=== PATIENT | female | born 1930 | race Caucasian/White ===

== ENCOUNTER 2016-10-07 07:54 | Inpatient (IN) | payer MEDICARE, BC, MEDICAID ==
[2016-10-07] VITALS (68 sets, daily range): BP systolic 83–173; BP diastolic 47–109; PULSE 96–128; RESP 11–58; TEMP 95.8–97.8; O2SAT 85–100; Ht 160 cm; Wt 71.6 kg
[~2016-10-07] VITALS: Ht 160 cm; Wt 71.6 kg
[~2016-10-07 07:54] MED LIST: DULO60CA25 PO; MELO-32 PO; MEMA5TAB PO; MULT-806 PO; OMEP-29 PO
--- OUTSIDE RECORDS SUMMARY | 2016-10-07 07:57 | XMS REPORT | Continuity of Care Document ---
Author Author [facility] Address [address] [place] [address] [place] [address] Phone Care Team Providers Care Insurance Claim Representative Name Role Phone Jose Luis Garza PP Unavailable Payers Payer name Insurance type Covered green party ID Authorization(s) Unknown Problems Condition Effective Dates (start - stop) Clinical Status Dementia - *Chronic Hypertension, Benign - *Chronic GERD - *Chronic Depression - *Chronic Rhinitis - *Chronic Cracked skin on feet - *Acute DEMENTIA W/O BEHAV DIST - ANXIETY STATE NOS - ESOPHAGEAL REFLUX - GASTROINTEST HEMORR NOS - Hypertension, Benign - *Chronic Dementia - *Chronic Hypertension, Benign - *Chronic Dementia - *Chronic Depression - *Chronic GERD - *Chronic Foot pain - *Acute Dermatitis - *Acute Left foot pain - *Acute Hypertension, Benign - Chronic Hypertension, Benign - Chronic Head injury - *Acute Family History Family Member Diagnosis Age At Onset Status Unknown Social History Social History Element Description Quantity Unknown Allergies, Adverse Reactions, Alerts Substance Reaction Severity Status Unknown Medications Medication Instructions Dosage Effective Dates (start - stop) Status omeprazole 20 mg tablet,delayed release Take 1 tablet by mouth every day. - Active Tylenol 325 mg tablet TAKE 2 TABS BY MOUTH EVERY 4-6 HOURS NEEDED - Active Calcium 600 + D(3) 600 mg (1,500 mg)-400 unit tablet Take 1 tablet by mouth twice a day. - Active Aricept 10 mg tablet Take 1 tablet by mouth every day. - Active Cymbalta 60 mg capsule,delayed release Take 1 capsule by mouth every day. - Active Namenda 10 mg tablet Take 1 tablet by mouth twice a day. - Active multivitamin tablet Take 1 tablet by mouth every day. - Active triamterene 37.5 mg-hydrochlorothiazide 25 mg capsule take 1 capsule by oral route every day 0 - Active lisinopril 10 mg tablet take 1 tablet (10MG) by oral route every day 10 MG - Active Cymbalta 30 mg capsule,delayed release take 1 capsule (30MG) by oral route every day With the 60MG to equal 90MG 30 MG - Active Pepcid 20 mg tablet take 1 tablet (20MG) by oral route 2 times every day 20 MG - Active Immunizations Vaccine Date Status Comments flu (split) (3 yrs or older) completed - Completed reason: other registry flu (split) (3 yrs or older) completed - Completed reason: other registry Results Test Name Date and Time Measure Units Reference Range Abnormal Flag Comments Unknown Vital Signs Date / Time: Height Weight Pulse Rate Blood Pressure Temperature /10:02:00 61.00 in 144.00 lbs 76 /min 136/74 mm[Hg] 98.2 F Procedures Procedure Date Unknown Encounters Encounter Location Date Patient Visit [facility] Patient Visit Conversion Patient [facility] Patient [facility] Patient [facility] Patient [facility] Patient Visit [facility] Patient Visit [facility] Patient Visit [facility] Patient Visit [facility] Patient Visit [facility] Advance Directives Directive Effective Date Unknown
--- OUTSIDE RECORDS SUMMARY | 2016-10-07 07:57 | XMS REPORT | Continuity of Care Document ---
Author Author [facility] Organization [facility] Address Unknown Phone Unavailable Allergies Medications Problems Procedures Results Encounters ACCT No. Visit Date/Time Discharge Status Pt. Type Provider Facility Loc./Unit Complaint [id number] 03/31/2013 10:02:00 03/31/2013 23 :59:59 CLS Outpatient
--- OUTSIDE RECORDS SUMMARY | 2016-10-07 07:57 | XMS REPORT | Referral Summary ---
Author Organization Unknown Address Unknown Phone Unavailable Care Team Providers Care Business Records Manager Name Role Phone Hamlet Garza Primary Care Physician [phone] Encounter VC Date(s): 07/24/14 - 07/24/14 [facility], [address] [place] [address] Discharge Diagnosis: Dementia Discharge Diagnosis: Benign hypertension Discharge Diagnosis: Allergic rhinitis, cause unspecified Discharge Diagnosis: Depression Discharge Disposition: Home or Self Care Attending Physician: Jose Luis Garza MD Admitting Physician: Jose Luis Garza MD Referring Physician: Jose Luis Garza MD Vital Signs Most recent to 1 oldest [Reference Range]: Temperature Tympanic 36.7 degC [36.6-38.1 degC] (07/24/14 1:20 PM) Peripheral Pulse 77 bpm Rate [60-100 bpm] (07/24/14 1:20 PM) Respiratory Rate 16 br/min [14-20 br/min] (07/24/14 1:20 PM) Blood Pressure 96/52 mmHg [90-140/60-90 mmHg] (07/24/14 1:20 PM) Most recent to 1 oldest [Reference Range]: SpO2 100 % (07/24/14 1:20 PM) Problem List Condition Effective Dates Status Health Status Informant Allergic rhinitis, Active cause unspecified(Confirme d) Anxiety(Confirmed) Active Benign essential Active hypertension (disorder)(Confirmed ) Benign Active hypertension(Confirm ed) Dementia(Confirmed) Active Depression(Confirmed Active ) Esophageal Active reflux(Confirmed) Gastroesophageal Active reflux disease (disorder)(Confirmed ) GI Active bleeding(Confirmed) HTN Active (hypertension)(Confi rmed) Macular Active degeneration(Confirm ed) Allergies, Adverse Reactions, Alerts No Known Medication Allergies Medications Aricept 10 mg oral tablet 1 tabs, Oral, Daily Start Date: 02/27/14 Status: Ordered Calcium 600+D 1 tabs, Oral, BID Start Date: 02/27/14 Status: Ordered Cymbalta 30 mg oral delayed release capsule 1 caps, Oral, BID, Take with the 60 mg for a total of 90 mg Special Instructions: Take with the 60 mg for a total of 90 mg Start Date: 02/27/14 Status: Ordered Cymbalta 60 mg oral delayed release capsule 1 caps, Oral, Daily Start Date: 02/27/14 Status: Ordered Flonase 50 mcg/inh nasal spray 2 sprays, Nasal, Daily, 0 Refill(s) Start Date: 03/08/14 Status: Ordered lisinopril 10 mg oral tablet 1 tabs, Oral, Daily Start Date: 02/27/14 Status: Ordered multivitamin 1 tabs, Oral, Daily Start Date: 02/27/14 Status: Ordered Namenda 10 mg oral tablet 1 tabs, Oral, BID Start Date: 02/27/14 Status: Ordered Pepcid 20 mg oral tablet 1 tabs, Oral, BID Start Date: 02/27/14 Status: Ordered RisperDAL 0.25 mg, Oral, Bedtime (once a day), 0 Refill(s) Start Date: 03/08/14 Status: Ordered triamterene-hydrochlorothiazide 37.5 mg-25 mg oral capsule 1 caps, Oral, Daily, # 30 caps, 0 Refill(s) Start Date: 03/08/14 Status: Ordered Tylenol Regular Strength 325 mg oral tablet 2 tabs, Oral, q4hr, as needed Special Instructions: as needed Start Date: 02/27/14 Status: Ordered Results No data available for this section Immunizations Vaccine Date Refusal Reason influenza virus vaccine, live 03/17/13 influenza virus vaccine, live 03/19/12 pneumococcal 23-polyvalent vaccine 05/18/13 Procedures Procedure Date Related Diagnosis Body Site Esophagogastroduodenoscopy1 2011 Colonoscopy 2007 Esophagogastroduodenoscopy2 2007 Esophagogastroduodenoscopy3 1989 Tonsillectomy 1941 Hysterectomy Procedure - laser to both eyes for macular degeneration Sling procedure of bladder neck 1Barrett continues. Needs to remain on PPI. No followup EGD recommended due to age. 2Ulcer disturbed with scope and calsed significant bleeding 3Several since 1989, done in [place], reported as [place] in the . Social History Social History Type Response Smoking Status Former smoker; Type: Cigarettes Assessment and Plan Extracted from: Title: Office Visit Note Author: Jose Luis Garza MD Date: 07/24/14 Assessment/Plan Allergic rhinitis, cause unspecified Benign hypertension Ordered: Office Visit Level 4 Est 95508 Dementia Depression Plan: Continue all current medications and continue current orders. Follow-up in 2 months or sooner.
--- OUTSIDE RECORDS SUMMARY | 2016-10-07 07:58 | XMS REPORT | Referral Summary ---
Author Author [facility] Organization [facility] Address Unknown Phone Unavailable Care Team Providers Care Banking Attorney Name Role Phone Hamlet Garza Primary Care Physician [phone] Encounter VC Date(s): 11/20/14 - 11/20/14 [facility], [address] [place] [address] Discharge Disposition: 01-Home or Self Care Attending Physician: Jose Luis Garza MD Admitting Physician: Jose Luis Garza MD Vital Signs Most recent to 1 oldest [Reference Range]: Temperature Tympanic 37.2 degC [36.6-38.1 degC] (11/20/14 9:34 AM) Peripheral Pulse 72 bpm Rate [60-100 bpm] (11/20/14 9:34 AM) Blood Pressure 122/64 mmHg [90-140/60-90 mmHg] (11/20/14 9:34 AM) Problem List Condition Effective Dates Status Health Status Informant Allergic rhinitis, Active cause unspecified(Confirme d) Anxiety(Confirmed) Active Benign Active hypertension(Confirm ed) Dementia(Confirmed) Active Depression(Confirmed Active ) Gastroesophageal Active reflux disease (disorder)(Confirmed ) GI Active bleeding(Confirmed) Macular Active degeneration(Confirm ed) Allergies, Adverse Reactions, Alerts No Known Medication Allergies Medications Aricept 10 mg oral tablet 1 tabs, Oral, Daily Start Date: 02/27/14 Status: Ordered Calcium 600+D 1 tabs, Oral, BID Start Date: 02/27/14 Status: Ordered Cymbalta 60 mg oral delayed release capsule 1 caps, Oral, Daily Start Date: 02/27/14 Status: Ordered Flonase 50 mcg/inh nasal spray 2 sprays, Nasal, Daily, 0 Refill(s) Start Date: 03/08/14 Status: Ordered lisinopril 10 mg oral tablet 1 tabs, Oral, Daily Start Date: 02/27/14 Status: Ordered multivitamin 1 tabs, Oral, Daily Start Date: 02/27/14 Status: Ordered Namenda XR 28 mg oral capsule, extended release 1 caps, Oral, Daily, 0 Refill(s) Start Date: 08/18/14 Status: Ordered Pepcid 20 mg oral tablet 1 tabs, Oral, BID Start Date: 02/27/14 Status: Ordered triamterene-hydrochlorothiazide 37.5 mg-25 mg oral capsule 1 caps, Oral, Daily, # 30 caps, 0 Refill(s) Start Date: 03/08/14 Status: Ordered Tylenol Regular Strength 325 mg oral tablet 2 tabs, Oral, q4hr, as needed Start Date: 02/27/14 Status: Ordered Results No data available for this section Immunizations Vaccine Date Refusal Reason influenza virus vaccine, inactivated 03/30/15 influenza virus vaccine, live 03/17/13 influenza virus [...] significant bleeding 3Several since 1989, done in [place], reported as [place] in the . Social History Social History Type Response Smoking Status Former smoker; Type: Cigarettes Assessment and Plan Extracted from: Title: Office Visit Note Author: Jose Luis Garza MD Date: 11/20/14 Assessment/Plan Anxiety Benign hypertension Dementia Depression Gastroesophageal reflux disease (disorder) Lesion of tongue Plan: I'm going to set you up to see Dr. Mora or Dr. Jansen. For the spot on her tongue. Regarding her chronic medical problems we'll continue all current medications and follow-up in 2 months.
--- OUTSIDE RECORDS SUMMARY | 2016-10-07 07:58 | XMS REPORT | Referral Summary ---
Author Author [facility] Organization [facility] Address Unknown Phone Unavailable Care Team Providers Care Client Service Manager Name Role Phone Hamlet Garza Primary Care Physician [phone] Encounter VC Date(s): 11/20/14 - 11/20/14 [facility] [place], [address] [place] [address]- Discharge Disposition: 01-Home or Self Care Attending [...]
--- OUTSIDE RECORDS SUMMARY | 2016-10-07 07:58 | XMS REPORT | Referral Summary ---
Author Author [facility] Organization [facility] Address Unknown Phone Unavailable Care Team Providers Care Tearer Press Clipping Name Role Phone Hamlet Garza Primary Care Physician [phone] Encounter Date(s): 11/28/14 - 11/28/14 [facility] [address] [place], [place] [address] Discharge Diagnosis: Glossitis Discharge Diagnosis: Dementia Discharge Disposition: 01-Home or Self Care Attending Physician: Dg Jones MD Admitting Physician: Dg Jones MD Vital Signs No data available for this section Problem List Condition Effective Dates Status Health [...] Site Esophagogastroduodenoscopy1 2011 Colonoscopy 2007 Esophagogastroduodenoscopy2 2007 Esophagogastroduodenoscopy1989 Tonsillectomy 1941 Hysterectomy Procedure - laser to both eyes for macular degeneration Sling procedure of bladder neck 1Barrett continues. Needs to remain on PPI. No followup EGD recommended due to age. 2Ulcer disturbed with scope and calsed significant bleeding 3Several since 1989, done in [place], reported as [place] in the . Social History Social History Type Response Smoking Status Former smoker; Type: Cigarettes Assessment and Plan Extracted from: Title: Office Visit Note Author: Dg Jones MD Date: 11/28/14 Assessment/Plan 1.Glossitis I counseled the patient that for now I would recommend observation. The patient was counseled to brush her tongue with a toothbrush. The tongue does not appear to have thrush. Return to clinic prn. 2.Dementia
--- OUTSIDE RECORDS SUMMARY | 2016-10-07 07:58 | XMS REPORT | Referral Summary ---
Author Organization Unknown Address Unknown Phone Unavailable Care Team Providers Care Staffing Administrator Name Role Phone Hamlet Garza Primary Care Physician [phone] Encounter VC Date(s): 08/18/14 - 08/18/14 [facility], [address] [place] [address] Discharge Diagnosis: Bronchopneumonia Discharge Diagnosis: Dementia Discharge Diagnosis: Hard corn Discharge Diagnosis: Edema Discharge Diagnosis: PVD (peripheral vascular disease) Discharge Diagnosis: Varicosities Discharge Disposition: Home or Self Care Attending Physician: Brit Alicia APRN Admitting Physician: Brit Alicia APRN Vital Signs Most recent to 1 oldest [Reference Range]: Temperature Tympanic 37.6 degC [36.6-38.1 degC] (08/18/14 2:19 PM) Peripheral Pulse 83 bpm Rate [60-100 bpm] (08/18/14 2:19 PM) Respiratory Rate 28 br/min [14-20 br/min] *HI* (08/18/14 2:19 PM) Blood Pressure 112/68 mmHg [90-140/60-90 mmHg] (08/18/14 2:19 PM) Most recent to 1 oldest [Reference Range]: SpO2 95 % (08/18/14 2:19 PM) Problem List Condition Effective Dates Status [...] Oral, Daily Start Date: 02/27/14 Status: Ordered DuoNeb 0.5 mg-2.5 mg/3 mL inhalation solution 3 mL, Inhalation, q4hr (scheduled), then q 4-6 hrs PRN, 0 Refill(s) Special Instructions: then q 4-6 hrs PRN Start Date: 08/18/14 Stop Date: 08/21/14 Status: Ordered Flonase 50 mcg/inh nasal spray 2 sprays, Nasal, Daily, 0 Refill(s) Start Date: 03/08/14 Status: Ordered Levaquin 500 mg oral tablet 1 tabs, Oral, q24hr, # 10 tabs, 0 Refill(s) Start Date: 08/18/14 Stop Date: 08/28/14 Status: Ordered lisinopril 10 mg oral tablet 1 tabs, Oral, Daily Start Date: 02/27/14 Status: Ordered Mucinex 600 mg, Oral, q12hr, 0 Refill(s) Start Date: 08/18/14 Status: Ordered multivitamin 1 tabs, Oral, Daily Start Date: 02/27/14 Status: Ordered Namenda XR 28 mg oral capsule, extended release 1 caps, Oral, Daily, 0 Refill(s) Start Date: 08/18/14 Status: Ordered Pepcid 20 mg oral tablet 1 tabs, Oral, BID Start Date: 02/27/14 Status: Ordered Promethazine with Codeine 6.25 mg-10 mg/5 mL oral syrup 5 mL, Oral, q6hr, as needed for cough, may cause drowsiness, X 10 days, # 200 mL , 0 Refill(s) Special Instructions: may cause drowsiness Start Date: 08/18/14 Stop Date: 08/28/14 Status: Ordered triamterene-hydrochlorothiazide 37.5 mg-25 mg oral [...] significant bleeding 3Several since 1989, done in [place], reported as [place] in the . Social History Social History Type Response Smoking Status Former smoker; Type: Cigarettes Assessment and Plan Extracted from: Title: Office Visit Note Author: Brit Alicia PARTS TECHNICIAN Date: 08/18/14 Assessment/Plan 1.Bronchopneumonia Levaquin 500 mg one by mouth daily times days. DuoNeb nebulized treatments0.52 .5/3 mL every 4 hours routine 3 days then when necessary every 4-6 hours. Mucinex 600 mg by mouth twice a day 10 days. Promethazine with codeine 1 teaspoon every 6 hours when necessary cough. Keep feet elevated as much as possible. Follow-up in the office with me in one week for recheck corn removal. Ordered: Office Visit Level 4 Est 36662 XR Chest 2 Views 2.Edema Ordered: Office Visit Level 4 Est 35686 3.PVD (peripheral vascular disease) Ordered: Office Visit Level 4 Est 90526 4.Varicosities Ordered: Office Visit Level 4 Est 00988 5.Hard corn Ordered: Office Visit Level 4 Est 75006 Dementia Ordered: Office Visit Level 4 Est 05564 Orders: promethazine-codeine, 5 mL, Oral, q6hr, as needed for cough, may cause drowsiness, X 10 days, # 200 mL, 0 Refill(s)
--- OUTSIDE RECORDS SUMMARY | 2016-10-07 07:58 | XMS REPORT | Referral Summary ---
Author Organization Unknown Address Unknown Phone Unavailable Care Team Providers Care Aluminum Molder Name Role Phone Hamlet Garza Primary Care Physician [phone] Encounter VC Date(s): 09/19/14 - 09/19/14 [facility], [address] [place] [address]- Discharge Diagnosis: Allergic rhinitis, cause unspecified Discharge Diagnosis: Depression Discharge Diagnosis: Benign hypertension Discharge Diagnosis: Dementia Discharge Disposition: Home or Self Care Attending Physician: Jose Luis Garza MD Admitting Physician: Jose Luis Garza MD Vital Signs Most recent to 1 oldest [Reference Range]: Temperature Tympanic 36.6 degC [36.6-38.1 degC] (09/19/14 11:18 AM) Peripheral Pulse 83 bpm Rate [60-100 bpm] (09/19/14 11:18 AM) Respiratory Rate 16 br/min [14-20 br/min] (09/19/14 11:18 AM) Blood Pressure 143/82 mmHg [90-140/60-90 mmHg] *HI* (09/19/14 11:18 AM) Most recent to 1 oldest [Reference Range]: SpO2 93 % (09/19/14 11:18 AM) Problem List Condition Effective Dates Status [...] significant bleeding 3Several since 1989, done in [place], reported as [place] in the . Social History Social History Type Response Smoking Status Former smoker; Type: Cigarettes Assessment and Plan Extracted from: Title: Office Visit Note Author: Jose Luis Garza MD Date: 09/19/14 Assessment/Plan Allergic rhinitis, cause unspecified Benign hypertension Dementia Depression Plan: Continue all current medications. I'm discontinuing the promethazine with codeine. I think the pneumonia has resolved. Follow-up in 2 months.
[2016-10-07] MEDS ORDERED: VANCOMYCIN 1 G in NORMAL SALINE 250 ML IV ONE (08:00)
[2016-10-07] MEDS ORDERED: NORMAL SALINE 1,000 ML IV ONE ×3 (08:00→09:00)
[2016-10-07] MEDS ORDERED: CEFEPIME 1 G in NORMAL SALINE 100 ML IV ONE (08:00)
[2016-10-07] MEDS ORDERED: LEVOFLOXACIN 750 mg IVPB 750 MG in D5W 150 ML IV ONE (08:00)
--- NOTE | 2016-10-07 08:05 | NUR ---
[facility] INFUSED 900 CC OF NS. SECOND BAG OF NORMAL SALINE HUNG AND ON PRESSURE BAG.
--- NOTE | 2016-10-07 08:10 | NUR ---
BIPAP RT HERE AND PLACED PT. ON BIPAP DUE TO O2 SATS IN THE 80'S WITH 02 PER NC AND BAGGING WITH 15 LITRES OF 02.
[2016-10-07] MEDS ORDERED: NORMAL SALINE IV SCH ×3 (08:15→09:00)
[2016-10-07] MEDS ORDERED: NOREPINEPHRINE IV SCH ×3 (08:15→09:00)
--- NOTE | 2016-10-07 08:16 | NUR ---
CEFEPIME CEFEPIME INFUSING.
--- NOTE | 2016-10-07 08:20 | NUR ---
NOREPINEPHRINE NOREPINEPHRINE STARTED FOR LOW BP. PT. CONTINUES ON BIPAP. GROANING WITH THE BIPAP AND WANTS IT OFF.
--- OUTSIDE RECORDS SUMMARY | 2016-10-07 08:22 | XMS REPORT | Continuity of Care Document ---
Author Author [facility] Organization [facility] Address Unknown Phone Unavailable Allergies Medications Problems Procedures Results Encounters ACCT No. Visit Date/Time Discharge Status Pt. Type Provider Facility Loc./Unit Complaint [id number] 03/31/2013 10:02:00 03/31/2013 23 :59:59 CLS Outpatient
[2016-10-07 08:31] LABS: BASOPHILS % (AUTO) 0.2 % (0-2); HCT - HEMATOCRIT 39.3 % (36-46); HGB - HEMOGLOBIN 12.5 GM/DL (12-16); LYMPHOCYTES # (AUTO) 0.7 T/MM3 (1-4.8); LYMPHOCYTES % (AUTO) 16.3 % (23-45); MEAN CORPUSCULAR HGB 31.4 UUG (26-34); MEAN CORPUSCULAR HGB CONC(MCHC 31.8 GM/DL (31-37); MEAN CORPUSCULAR VOLUME 98.7 UM3 (80-100); MEAN PLATELET VOLUME 11.1 UM3 (9.4-12.4); MONOCYTES # (AUTO) 0.4 T/MM3 (0-0.8); MONOCYTES % (AUTO) 8.6 % (0-9.0); NEUTROPHILS #(AUTO)-ABSOLUTE 3.1 T/MM3 (1.8-7.7); NEUTROPHILS % (AUTO) 74.9 % (33-66); RED BLOOD COUNT 3.98 M/MM3 (4.00-5.20); WBC - WHITE BLOOD COUNT 4.2 T/MM3 (4.5-11.0)
--- NOTE | 2016-10-07 08:36 | ERPDOC ---
Departure Disposition Decision Date: October 07, 2016 Disposition Decision Time: 09:38 Disposition: 02 TO [facility] Impression Impression Impression: Primary Impression: Sepsis due to pneumonia Additional Impressions: Hypoxia Hypotension Hypotension type: other hypotension type Qualified Codes: I95.89 - Other hypotension Severity: Critical Condition: Improved Seen By: Physician only Referrals: PATT DONIS MD (Family) Problems/Meds/Labs Reviewed?: Yes Medications reviewed and manag: Yes Follow up care ordered?: Yes Mental Status: Alert, Confused Critical Care Note Total Time (mins): 105 Critical Care Spent: [place]-rgef care of pt, Reviewing test results, Discuss the case w/staff, Documenting the MR, Discussion w/ family/DPOA During this visit the pt was: Critically Ill, At Risk of Deterioration, At Risk of HPI - General Medical General Chief Complaint: Dyspnea/Respdistress Stated Complaint: GI BLEED Time Seen by Provider: 08:00 Source: RN/MD, EMS Exam Limitations: clinical condition HPI - General Medical Initial Comments 86yo woman presented to the ER today by EMS for nonresponsiveness, dried blood around the mouth, hypoxia, and hypotension. Pt is a [facility] resident; [facility] staff could not confidently state when pt was last seen in her usual state of health, when blood appeared on pts face/lips, what her usual LOC is, etc. [facility] staff called EMS when they noted dried blood and unresponsiveness earlier this AM. EMS arrived to find pt obtunded, hypotense (BP 60/palp), and hypoxic (70s on RA). IVF under pressure brought her pressure to 70s/40s; supplemental O2 via NC, along with PPV increased her SaO2 to low 90s. Pt remained unresponsive throughout transport to ER. Pt does have a signed DNR in her chart. Daughter (DPBYRON) lives in [place], [place]. Occurred At: home Severity: severe Hx of Similar Symptoms: No Allergies: Coded Allergies: NKDA (Verified Allergy, Unknown, 10/07/16) Past History Unable to Obtain PMH Due to: clinical condition Patient Medical History (1) Dysphagia (2) Barretts esophagus Past Medical History Metabolic: hypertension, hypothyroidism ENMT: allergies, dental problems GI: GERD, constipation Psychological: anxiety, dementia, depression Review of Systems Unable to Obtain ROS Due to: clinical condition Physical Exam General General Nourishment: well nourished, well developed, appears stated age, adult , obese, acute distress General Body Habitus: disheveled Vitals and Pain First Documented Vital Signs Date Time Temp Pulse Resp B/P Pulse Ox O2 Delivery O2 Flow Rate FiO2 10/07/16 07:55 89 10/07/16 08:27 97.4 98 22 64/47 Ambu-Bag 15.00 10/07/16 08:46 100 Weight: Kilograms: 66.500 Height (feet): 5 Height (inches): 3.00 Triage Pain Scale: RN VS reviewed by Provider: Yes Eyes (brief) Eyes Brief: found: PERRL, scleral icterus, not found: EOMI ENMT (brief) ENMT Brief: NOT FOUND: mucosa moist (Dry MM), nasal erythema, nasal exudate Comments Dried blood present around pts lips/mouth Neck (brief) Neck: FOUND: trachea midline, NOT FOUND: JVD, adenopathy, thyromegaly Respiratory (brief) Respiratory: FOUND: equal bilaterally, rales (Throughout), symmetrical, NOT FOUND: clear all rendon, wheezes Cardiovascular (brief) Cardiac: FOUND: regular rate, NOT FOUND: click, gallop, murmur, pedal edema, peripheral edema, regular rhythm (Irregularly irregular rhythm), rub Capillary Refill: <2 sec Pulses: all distal extremities, equal, strong Abdomen (brief) Abdominal Brief: FOUND: bowel normo active x4, soft, NOT FOUND: distended, hepatosplenomegaly, pulsatile mass, tender Lymphatic (brief) Lymphatic Brief: NOT FOUND: adenopathy, lymphedema Musculoskeletal (brief) Musculoskeletal Brief: NOT FOUND: deformity, loss of motion, spasm, tenderness Integumentary (brief) Integumentary Brief: FOUND: dry, NOT FOUND: pink, warm Comments Dusky polk Neurologic (brief) Neurological Brief: FOUND: DTR 2/4 all extremities, NOT FOUND: CN w/o gross def to obs, gait w/o gross def to obs, motor-no gross deficits, sensory-no gross deficits Psychiatric (brief) Psychiatric Brief: NOT FOUND: alert, oriented Differential Diagnoses Considering: Acute [place], CVA, Drug Overdose, Hypo/Hyperglycemia, Hypo/ Hyperkalemia, Hypo/Hypernatremia, Medication Effect, Metabolic, Pneumonia, Pulmonary Embolus, TIA, UTI Progress Results/Orders Orders Procedure Category Date Status Time Normal Saline (Normal PHA 10/07/16 Complete Saline Iv) 08:15 Lactate - Lactic Acid LAB 10/07/16 Complete 08:00 Blood Culture CATHY 10/07/16 In Process 08:00 Normal Saline (Normal PHA 10/07/16 Complete Saline Iv) 08:00 Cbc W/Auto LAB 10/07/16 Complete Diff-Reflex Manual 08:00 Cmp - Comprehensive LAB 10/07/16 Complete Metabolic 08:00 Procalcitonin LAB 10/07/16 Complete 08:00 Iv Lock (Ed Only) EDM 10/07/16 Transmitted 08:00 Oxygen Administration EDM 10/07/16 Transmitted 08:00 Blood Gas, Arterial - LAB 10/07/16 Complete ABG 08:00 Vancomycin (Vancocin) PHA 10/07/16 Complete 08:00 Pharmacy Consult CONS 10/07/16 Transmitted 08:00 Levofloxacin 750 Mg PHA 10/07/16 Complete Ivpb (Levaquin 750 M 08:00 Cefepime (Maxipime) PHA 10/07/16 Complete 08:00 D-Dimer LAB 10/07/16 Complete EKG EKG 10/07/16 Taken Type And Screen BBK 10/07/16 Complete 08:00 Normal Saline (Ns) PHA 10/07/16 Complete W/Norepinephrine 08:15 Normal Saline (Ns) PHA 10/07/16 Complete W/Norepinephrine 08:30 Troponin I W LAB 10/07/16 Complete Hemolysis Index 08:30 Probnp LAB 10/07/16 Complete 08:30 INR LAB 10/07/16 Complete 08:50 PTT LAB 10/07/16 Complete 08:50 Normal Saline (Normal PHA 10/07/16 In Process Saline Iv) 09:00 Chest 1 View RAD 10/07/16 Resulted 08:00 Normal Saline (Ns) PHA 10/07/16 In Process W/Norepinephrine 09:00 Normal Saline PHA 10/07/16 In Process (Norm... W/Potassium 09:15 1/2 Ns W/ Kcl 20meq PHA 10/07/16 In Process (06/09 Ns W/ Kcl 20meq 09:30 Andrea (Ed) EDM 10/07/16 Transmitted 09:26 Catheter Needs VALE 10/07/16 In Process Assessment 09:26 Bladder Scanner (Ed) EDM 10/07/16 Transmitted 09:26 Bipap Subsequent Day RT 10/07/16 Logged Lactate - Lactic Acid LAB 10/07/16 Logged 13:00 Cefepime (Maxipime) PHA 10/07/16 In Process 20:00 Vancomycin (Vancocin) PHA 10/07/16 Complete 21:00 Lorazepam (Ativan) PHA 10/07/16 In Process 09:45 Bmp - Basic Metabolic LAB 10/07/16 Logged Panel 18:00 Pharmacy Consult CONS 10/07/16 Transmitted 09:42 Cbc W/Auto LAB 10/08/16 Verified Diff-Reflex Manual 04:00 Bmp - Basic Metabolic LAB 10/08/16 Verified Panel 04:00 Albuterol/Ipratropium PHA 10/07/16 In Process (Duoneb) 11:00 Telemetry VALE 10/07/16 In Process 09:42 UA, LAB 10/07/16 Complete Dip&Micro(Complete) & 09:45 Place In Facility: ED ADM 10/07/16 Transmitted Levofloxacin 750 Mg PHA 10/09/16 In Process Ivpb (Levaquin 750 M 09:00 Lab Results Laboratory Tests Test 10/07/16 07:40 10/07/16 08:00 10/07/16 08:07 10/07/16 08:25 Prothromb Time International Ratio 1.11 Activated Partial Thromboplast Time 23.2SEC Magnesium Level 1.8MG/DL Arterial Blood pH 7.240 Arterial Blood Partial Pressure CO2 36MMHG Arterial Blood pO2 at Patient Temp 67MMHG Arterial Blood HCO3 15MEQ/L Arterial Blood Total CO2 16.5MEQ/L Arterial Blood Oxygen Saturation 89.0% Arterial Blood Base Excess -11.1MMOL/L Oxygen Delivery Method (LAB) Bpap, % Blood Gas Oxygen Liter Flow Blood Gas Oxygen Percent Given 100 Blood Gas Vent Rate Blood Gas Tidal Volume ML White Blood Count 4.2T/MM3 Red Blood Count 3.98M/MM3 Hemoglobin 12.5GM/DL Hematocrit 39.3% Mean Corpuscular Volume 98.7UM3 Mean Corpuscular Hemoglobin 31.4UUG Mean Corpuscular Hemoglobin Concent 31.8GM/DL RDW Standard Deviation 45.1FL Platelet Count 68T/MM3 Mean Platelet Volume 11.1UM3 Immature Granulocyte % (Auto) 0.0% Neutrophils (%) (Auto) 74.9% Lymphocytes (%) (Auto) 16.3% Monocytes (%) (Auto) 8.6% Eosinophils (%) (Auto) 0.0% Basophils (%) (Auto) 0.2% Absolute Immature Granulocyte (auto 0.00T/MM3 Absolute Neutrophils (auto) 3.1T/MM3 Absolute Lymphocytes (auto) 0.7T/MM3 Absolute Monocytes (auto) 0.4T/MM3 Absolute Eosinophils (auto) 0.0T/MM3 Absolute Basophils (auto) 0.0T/MM3 D-Dimer 4268NG/ML Turbidity < 20 Sodium Level 149MEQ/L Potassium Level 2.8MEQ/L Chloride Level 115MEQ/L Carbon Dioxide Level 17MEQ/L Anion Gap 17MEQ/L Blood Urea Nitrogen 24.0MG/DL Creatinine 1.5MG/DL Glomerular Filtration Rate Calc 33 BUN/Creatinine Ratio 16RATIO Glucose Level 148MG/DL Calculated Osmolality 293MOSM/KG Calcium Level 7.7MG/DL Total Bilirubin 0.50MG/DL Icterus Index < 2 Aspartate Amino Transf (AST/SGOT) 25U/L Alanine Aminotransferase (ALT/SGPT) 32U/L Alkaline Phosphatase 44U/L Troponin I 0.027ng/ml MI-Kla-S-Type Natriuretic Peptide 1220PG/ML Total Protein 4.7G/DL Albumin 2.5G/DL Globulin 2.2G/DL Albumin/Globulin Ratio 1.1RATIO Plasma Lactate 8.7MMOL/L Procalcitonin 6.69NG/ML Chemistry Specimen Hemolysis < 15 Test 10/07/16 09:45 Urine Collection Type Straight cath Urine Color [place] Urine Turbidity Clear Urine pH 5.0 Urine Specific [place] 1.025 Urine Protein 1+ Urine Glucose (UA) Negative Urine Ketones Negative Urine Blood 2+ Urine Nitrite Negative Urine Bilirubin Negative Urine Urobilinogen 0.2EU/DL Urine Leukocyte Esterase Negative Urine RBC 0-1/HPF Urine WBC 30-50/HPF Urine Squamous Epithelial Cells 0-5 Urine Bacteria 3+ Urine Culture Indicated Cult reflexed &setup Medications Current ED Medications Sodium Chloride 1,000 ml @ 1,000 mls/hr Q1H ONCE IV ; Start 10/07/16 at 08:15; Stop 10/07/16 at 09:14; Status DC Sodium Chloride 1,000 ml @ 0 mls/hr Q0M ONCE IV Last administered on 10/07/16t 08:05; Start 10/07/16 at 08:00; Stop 10/07/16 at 08:04; Status DC Vancomycin HCl 1 g/Sodium Chloride 250 ml @ 250 mls/hr O ONCE IV Last administered on 10/07/16 08:52; Start 10/07/16 at 08:00; Stop 10/07/16 at 08:59; Status DC Levofloxacin 750 mg/Dextrose/Water 150 ml @ 100 mls/hr O ONCE IV ; Start at 08:00; Stop 10/07/16 at 09:29; Status DC Cefepime HCl 1 g/ Sodium Chloride 100 ml @ 200 mls/hr O ONCE IV Last administered on 10/07/16 08:16; Start 10/07/16 at 08:00; Stop 10/07/16 at 08:29; Status DC Norepinephrine Bitartrate 4 mg/ Sodium Chloride 504 ml @ 60.48 mls/ hr Q8H20M IV Last administered on 10/07/16 08:55; Start 10/07/16 at 08:15; Stop 10/07/16 at 08:23; Status DC Norepinephrine Bitartrate 4 mg/ Sodium Chloride 504 ml @ 60.48 mls/ hr Q8H20M IV ; Start 10/07/16 at 08:30; Stop 10/07/16 at 10:03; Status DC Sodium Chloride 1,000 ml @ 250 mls/hr Q4H ONCE IV ; Start 10/07/16 at 09:00; Stop 10/07/16 at 12:59 Norepinephrine Bitartrate 4 mg/ Sodium Chloride 504 ml @ 45.36 mls/ hr Q11H7M IV ; Start 10/07/16 at 09:00 Potassium Chloride 40 meq/ Sodium Chloride 1,020 ml @ 250 mls/hr Q4H5M IV Last administered on 10/07/16 09:21; Start 10/07/16 at 09:15 Potassium Chloride/Sodium Chloride (1/2 NS w/ KCL 20mEq) 1,000 ml @ 125 mls/hr Q8H IV ; Start 10/07/16 at 09:30 Lorazepam (Ativan) 0.5 mg Q4H PRN IV ; Start 10/07/16 at 09:45 Progress Progress Pt unstable hypoxic, hypotense, and obtunded upon presentation. Continued IVF maintained MAPS ~50. Initial work ups for sepsis, KY, HCAP, and shock initiated simultaneously. Pts SaO2 100% on BiPap with 100 FiO2 support. ABG suggestive of metabolic acidosis with possible resp contribution. MAP quickly improved >65 with 8mcg/min levophed. Pt was 97.4'F axillary on initial presentation. Pt still obtunded, despite improving vital signs. Awaiting results of labs prior to contacting DPOA (in order to have productive conversation regarding goals and interventions). 1hr after initial presentation, pts MAPs were 70. Pt was alert and interacting. Was oriented to person, but not place or time. FiO2 of BiPap was weaned to 90% with SaO2 maintained above 92%. Pts BP increased to 130s/60s. Placed order for 3rd liter of IVF; decreased levophed to 6mcg/ml. After decreased FiO2 and decreased levophed, pts SaO2 dropped slowly to 80s and MAP dropped to 65; pt also became obtunded. Increased levophed to 8mcg/min again and FiO2 to 100% with improvement. Contacted hospitalist for admission - pt accepted to unit. EKG EKG : Rate: 60-100 Rhythm: sinus [place]: normal QRS: normal Intervals: normal ST/T: non-specific changes Interpreted by: signing physician Consult/PCP Consult/PCP : Physician Contacted: Dr. Fairbanks Time Called: 09:05 Time of first response: 09:25 Type of discussion: Admit Discussion/PCP Time Arrived: 09:30 Discussion Details Will accept pt for admission to CCU. Dipti THOMPSON in ER at 0930 for eval/admission. Xray Xray : Xray: CXR Portable Interpretation: Abnormal (Patchy bilateral airspace disease could be due to edema, pneumonia or aspiration. Recommend clinical and laboratory correlation. ) DESHAWN STARKS DO October 07, 2016 08:36
[2016-10-07 08:42] LABS: ALBUMIN 2.5 G/DL (3.5-5.0); ALBUMIN/GLOBULIN RATIO 1.1 RATIO (1.1-2.2); ALKALINE PHOSPHATASE 44 U/L (38-126); ALT (SGPT) 32 U/L (9-52); ANION GAP 17 MEQ/L (5-15); AST (SGOT) 25 U/L (14-36); BUN/CREATININE RATIO 16 RATIO (6-26); CALCIUM 7.7 MG/DL (8.4-10.2); CHLORIDE 115 MEQ/L (98-107); CO2 - CARBON DIOXIDE 17 MEQ/L (22-30); CREATININE 1.5 MG/DL (0.7-1.2); GLOMERULAR FILTRATION RATE 33; GLUCOSE 148 MG/DL (65-110); SODIUM 149 MEQ/L (134-144); TOTAL PROTEIN 4.7 G/DL (6.3-8.2)
--- NOTE | 2016-10-07 08:52 | NUR ---
VANCO VANCOMYCIN INFUSING.
--- NOTE | 2016-10-07 08:55 | NUR ---
NOREPINEPHRINE DECREASED NOREPINEPHRINE TO 6 MCG/HR.
--- NOTE | 2016-10-07 09:00 | NUR ---
XRAY XRAY HERE FOR PORTABLE CHEST XRAY.
[2016-10-07 09:01] LABS: LACTATE - LACTIC ACID 8.7 MMOL/L (0.6-2.2)
[2016-10-07 09:02] LABS: POTASSIUM 2.8 MEQ/L (3.6-5)
[2016-10-07 09:03] LABS: INR 1.11 (0.76-1.04); PROTHROMBIN TIME 12.1 SEC (9.31-12.49); PTT 23.2 SEC (24-36)
--- NOTE | 2016-10-07 09:10 | NUR ---
NOREPINEPHRINE BP DECREASED WITH A DECREASE IN THE MEDICATION. INCREASED IT TO 8 MCG/MIN AGAIN.
[2016-10-07] MEDS ORDERED: POTASSIUM CHLORIDE 40 MEQ in NORMAL SALINE 1,000 ML IV SCH (09:15)
[2016-10-07 09:21] LABS: PROBNP 1220 PG/ML (0-175)
[2016-10-07] MEDS ORDERED: 1/2 NS w/ KCL 20mEq 1,000 ML IV SCH (09:30)
--- NOTE | 2016-10-07 09:30 | DI ---
Indication: ITS.REASON: hypoxia PROCEDURE: CHEST 1 VIEW: Encounter: Initial Comparison: None Findings: Patchy bilateral consolidation, left greater than right involvement of the left lung. Small pleural effusions. No pneumothorax. Cardiac silhouette is mildly enlarged. Mediastinal contours are grossly normal. Pulmonary vascularity is indistinct. Impression: Patchy bilateral airspace disease could be due to edema, pneumonia or aspiration. Recommend clinical and laboratory correlation. .
[2016-10-07] MEDS ORDERED: LISI-621 PO (09:34)
[2016-10-07] MEDS ORDERED: DONE10TA PO (09:34)
[2016-10-07] MEDS ORDERED: MEMA28CA PO (09:34)
--- NOTE | 2016-10-07 09:40 | NUR ---
STATUS PT. IS MORE ALERT. NOT WANTING THE BIPAP ON. MONITOR CONT. ATRIAL FIB WITH A RAPID RESPONSE.
[2016-10-07 09:50] LABS: BLOOD, URINE 2+ (NEGATIVE); COLOR,URINE ORANGE (YELLOW); LEUKOCYTE ESTERASE ,URINE NEGATIVE (NEGATIVE); NITRITE,URINE NEGATIVE (NEGATIVE); UROBILINOGEN,URINE 0.2 EU/DL (NORMAL)
--- NOTE | 2016-10-07 09:50 | NUR ---
LEVAQUIN LEVAQUIN INFUSING.
--- NOTE | 2016-10-07 10:00 | NUR ---
REPORT REPORT GIVEN TO NU OLIVIA RN IN CCU.
[2016-10-07 10:04] LABS: BACTERIA,URINE 3+ (NEGATIVE); RBC,URINE 0-1 /HPF (0-3); SQUAMOUS EPITHELIAL CELL,UR 0-5; WBC,URINE 30-50 /HPF (0-5)
--- NOTE | 2016-10-07 10:08 | HPPDOC ---
RENATA SAVAGE V CABLE RESPOOLER 10/07/16 0955: HPI - Adult Date DATE: 10/07/16 TIME: 09:50 General Chief Complaint: Septic shock History of Present Illness Alanis is a 86 yr old female who was brought to the ER from [facility] where she resides. Is reported by emergency room staff. The patient was found unresponsive and noted to be hypoxic and hypotensive. She was found to have dried blood in her mouth around her lips. Initial blood pressure was 60 by palpation and room air saturations in the 70s. Patient was placed on oxygen, started on IV fluids brought to the emergency room for further evaluation and treatment. Temp 97.4, HR 98, Resp rate 98, BP 64/47, 89% on 15 liters. The BBC count 4.2, hemoglobin 12.5, hematocrit 39.3, platelet count low at 68. Sodium is elevated at 149, potassium low at 2.8, BUN 24, creatinine 1.2. D-dimer slightly elevated at 4268, troponin 0.027, BNP 1220. Venous lactate is found to be elevated at 8.7, pro calcitonin 6.69. ABG, pH 7.24, pCO2 36, pO2 67, bicarbonate 15 this was on Bipap. Chest x-ray did reveal patchy bilateral lobe air space likely representing pneumonia. Due to extreme hypotension, patient was started on Levophed drip to maintain adequate map. She was also given IV fluid bolus, 30 ML per kilogram as per sepsis protocol and initiated on vancomycin, cefepime and Levaquin for antimicrobial coverage. The hospitalist services were contacted and accepted patient for inpatient admission for septic shock, pneumonia. It is expected that her stay will be greater than 2 overnights. Medical records/ group home paperwork reviewed. Patient has a DNR. Past Medical History Past Medical History Hypertension Hypothyroidism GERD Dementia Anxiety, depression Villeda's esophagus History of GI bleeding Macular degeneration Surgical History Patient's Surgical History: Colonoscopy, 2007, 2012 Tonsillectomy Hysterectomy Current Medications Home Meds Reported Medications Memantine HCl (Namenda Xr) 28 Mg Cap.spr.24, 28 MG PO DAILY, CAP 10/07/16 Lisinopril (Lisinopril) 20 Mg Tablet, 20 MG PO DAILY for HYPERTENSION, TAB 10/07/16 Donepezil HCl (Aricept) 10 Mg Tablet, 1 TAB PO HS, TAB 10/07/16 Discontinued Reported Medications Meloxicam (Mobic) 15 Mg Tablet, 15 MG PO DAILY 09/05/11 Memantine Hcl (Namenda) 5 Mg Tablet, 5 MG PO BID 09/05/11 Duloxetine Hcl (Cymbalta) 60 Mg Capsule.dr, 60 MG PO DAILY 09/05/11 Multivitamins (Multivitamin) 1 Tab Tablet, 1 TAB PO DAILY 09/05/11 Omeprazole (Prilosec) 20 Mg Capsule.dr, 20 MG PO DAILY 09/05/11 Allergies: Coded Allergies: NKDA (Verified Allergy, Unknown, 10/07/16) Family History Family History: Mother-hypertension Sister-CVA, hypertension Social History Smoking Status: Never smoker Substance Use Type: does not use Substance last used: prior to arrival Housing: group home ([facility]) Advance Directives: Yes DNR Social History Comments Primary care provider, Dr. CORRAL Review of Systems Unable to Obtain ROS Due to: clinical condition Comments Unable to obtain review of systems secondary to severity of illness Physical Exam General General Nourishment: well nourished, well developed Vital Signs Vital Signs Date Time Temp Pulse Resp B/P Pulse Ox O2 Delivery O2 Flow Rate FiO2 10/07/16 08:46 116 100 Spontaneous/Timed 100 10/07/16 08:27 97.4 22 64/47 15.00 Height (Feet): 5 Height (Inches): 3.00 Comments oral mucosa dry with blood on lips Comments Course anterior with diminished bases Cardiovascular (brief) Cardiac Brief: FOUND: regular rate, regular rhythm, NOT FOUND: murmur, pedal edema Abdomen (brief) Abdominal Brief: FOUND: BS normo active x4, soft Integumentary (brief) Integumentary Brief: FOUND: dry, pink, warm Neurologic (brief) Neurological Brief: FOUND: cranial 2-12 intact Neurologic RN Documented GCS Eye Opening: (2)To Pain Verbal: (4)Confused Motor: (4)Withdraws to Pain Total: Psychiatric (brief) FOUND: alert Comments Non-verbal Laboratory Laboratory Tests Test 10/07/16 07:40 10/07/16 08:07 10/07/16 08:25 10/07/16 09:45 Prothromb Time International Ratio 1.11 Activated Partial Thromboplast Time 23.2SEC Arterial Blood pH 7.240 Arterial Blood Partial Pressure CO2 36MMHG Arterial Blood pO2 at Patient Temp 67MMHG Arterial Blood HCO3 15MEQ/L Arterial Blood Total CO2 16.5MEQ/L Arterial Blood Oxygen Saturation 89.0% Arterial Blood Base Excess -11.1MMOL/L Oxygen Delivery Method (LAB) Bpap, % Blood Gas Oxygen Liter Flow Blood Gas Oxygen Percent Given 100 Blood Gas Vent Rate Blood Gas Tidal Volume ML White Blood Count 4.2T/MM3 Red Blood Count 3.98M/MM3 Hemoglobin 12.5GM/DL Hematocrit 39.3% Mean Corpuscular Volume 98.7UM3 Mean Corpuscular Hemoglobin 31.4UUG Mean Corpuscular Hemoglobin Concent 31.8GM/DL RDW Standard Deviation 45.1FL Platelet Count 68T/MM3 Mean Platelet Volume 11.1UM3 Immature Granulocyte % (Auto) 0.0% Neutrophils (%) (Auto) 74.9% Lymphocytes (%) (Auto) 16.3% Monocytes (%) (Auto) 8.6% Eosinophils (%) (Auto) 0.0% Basophils (%) (Auto) 0.2% Absolute Immature Granulocyte (auto 0.00T/MM3 Absolute Neutrophils (auto) 3.1T/MM3 Absolute Lymphocytes (auto) 0.7T/MM3 Absolute Monocytes (auto) 0.4T/MM3 Absolute Eosinophils (auto) 0.0T/MM3 Absolute Basophils (auto) 0.0T/MM3 D-Dimer 4268NG/ML Turbidity < 20 Sodium Level 149MEQ/L Potassium Level 2.8MEQ/L Chloride Level 115MEQ/L Carbon Dioxide Level 17MEQ/L Anion Gap 17MEQ/L Blood Urea Nitrogen 24.0MG/DL Creatinine 1.5MG/DL Glomerular Filtration Rate Calc 33 BUN/Creatinine Ratio 16RATIO Glucose Level 148MG/DL Calculated Osmolality 293MOSM/KG Calcium Level 7.7MG/DL Total Bilirubin 0.50MG/DL Icterus Index < 2 Aspartate Amino Transf (AST/SGOT) 25U/L Alanine Aminotransferase (ALT/SGPT) 32U/L Alkaline Phosphatase 44U/L Troponin I 0.027ng/ml MO-Sey-K-Type Natriuretic Peptide 1220PG/ML Total Protein 4.7G/DL Albumin 2.5G/DL Globulin 2.2G/DL Albumin/Globulin Ratio 1.1RATIO Plasma Lactate 8.7MMOL/L Procalcitonin 6.69NG/ML Chemistry Specimen Hemolysis < 15 Sepsis Diagnostic Criteria Sepsis Confirmed/Suspected Infection: Yes SIRS Criteria: Acute mental status chg, Pulse >= 90 beats/min Severe Sepsis SpO2 <90% or ventilated, SBP <90 or MAP <65, PLTC<100,000, Lactate >=2.0 mg/dL Septic Shock Septic Shock Criteria: Lactate >4 Assessment & Plan Problems: (1) Septic shock Status: Acute Assessment & Plan: Manifestations of septic shock include the following- 1. Respiratory failure with Hypoxia 2. Pneumonia 3. Venous lactate 8.7 4. Hypotension, 64/47- requiring Levophed drip to maintain MAP (2) HCAP (healthcare-associated pneumonia) Status: Acute (3) Thrombocytopenia Status: Acute Assessment & Plan: POA- Plt count- 68 (4) Hypokalemia Status: Acute Assessment & Plan: POA- K 2.8 (5) Dehydration Status: Acute (6) Hypernatremia Status: Acute (7) Hypertension Status: Chronic (8) GERD (gastroesophageal reflux disease) Status: Chronic (9) Hypothyroidism Status: Chronic (10) Dementia Status: Chronic (11) Anxiety Status: Chronic (12) History of GI bleed Status: Resolved (13) Respiratory failure with hypoxia Status: Acute Qualifiers: Chronicity: acute Qualified Codes: J96.01 - Acute respiratory failure with hypoxia Plan/Intensity of Service Admit patient as a inpatient under the care of Dr Fairbanks for septic shock, hypoxia and pneumonia Continue on Bi-pap for respiratory failure with hypoxia. Duoneb breathing tx QID. Given septic shock. Patient was given normal saline for fluid resuscitation as per sepsis protocol. Continue with half normal saline at 20 KCl for ongoing hydration. Continue on Levophed drip to maintain goal map greater than 65. Continue with antibiotic therapy including Levaquin, cefepime, vancomycin. Consult pharmacy for management of vancomycin dosing. Blood culture and urine culture pending. Recheck venous lactate at 1300 as per sepsis protocol. Will recheck basic metabolic profile at 1800 today to follow electrolyte abnormalities. Monitor patient on cardiac telemetry Will discuss anticoagulation further with Dr Fairbanks and firm assisted given thrombocytopenia, accompanied with elevated creatinine. There is concern for acute thrombus given elevation in d-dimer Will need to speak with patient's daughter, DPOA regarding plan of care, and severity of illness. Again, patient is a do not resuscitate and this orders written. At time of discharge medical care will return to primary care provider Dr Corral Code Status Hospital Course Summary Disclaimer The hospital course summary below is not to be considered part of the above Progress Note. Hospital Course Summary Admit patient as a inpatient under the care of Dr Fairbanks for septic shock, hypoxia and pneumonia Continue on Bi-pap for respiratory failure with hypoxia. Duoneb breathing tx QID. Given septic shock. Patient was given normal saline for fluid resuscitation as per sepsis protocol. Continue with half normal saline at 20 KCl for ongoing hydration. Continue on Levophed drip to maintain goal map greater than 65. Continue with antibiotic therapy including Levaquin, cefepime, vancomycin. Consult pharmacy for management of vancomycin dosing. Blood culture and urine culture pending. Recheck venous lactate at 1300 as per sepsis protocol. Will recheck basic metabolic profile at 1800 today to follow electrolyte abnormalities. Monitor patient on cardiac telemetry Will discuss anticoagulation further with Dr Fairbanks and firm assisted given thrombocytopenia, accompanied with elevated creatinine. There is concern for acute thrombus given elevation in d-dimer Will need to speak with patient's daughter, DPOA regarding plan of care, and severity of illness. Again, patient is a do not resuscitate and this orders written. At time of discharge medical care will return to primary care provider KATELYN Campo MD 10/07/16 1248: Past Medical History Current Medications Home Meds Reported Medications Memantine HCl (Namenda Xr) 28 Mg Cap.spr.24, 28 MG PO DAILY, CAP 10/07/16 Lisinopril (Lisinopril) 20 Mg Tablet, 20 MG PO DAILY for HYPERTENSION, TAB 10/07/16 Donepezil HCl (Aricept) 10 Mg Tablet, 1 TAB PO HS, TAB 10/07/16 Discontinued Reported Medications Meloxicam (Mobic) 15 Mg Tablet, 15 MG PO DAILY 09/05/11 Memantine Hcl (Namenda) 5 Mg Tablet, 5 MG PO BID 09/05/11 Duloxetine Hcl (Cymbalta) 60 Mg Capsule., 60 MG PO DAILY 09/05/11 Multivitamins (Multivitamin) 1 Tab Tablet, 1 TAB PO DAILY 09/05/11 Omeprazole (Prilosec) 20 Mg Capsule., 20 MG PO DAILY 09/05/11 Allergies: Coded Allergies: NKDA (Verified Allergy, Unknown, 10/07/16) Assessment & Plan Problems: (1) Septic shock Status: Acute Assessment & Plan: Manifestations of septic shock include the following- 1. Respiratory failure with Hypoxia 2. Pneumonia 3. Venous lactate 8.7 4. Hypotension, 64/47- requiring Levophed drip to maintain MAP (2) HCAP (healthcare-associated pneumonia) Status: Acute (3) Respiratory failure with hypoxia Status: Acute Qualifiers: Chronicity: acute Qualified Codes: J96.01 - Acute respiratory failure with hypoxia (4) Thrombocytopenia Status: Acute Assessment & Plan: POA- Plt count- 68 (5) Hypokalemia Status: Acute Assessment & Plan: POA- K 2.8 (6) Dehydration Status: Acute (7) Hypernatremia Status: Acute Assessment & Plan: POA (8) Hypertension Status: Chronic (9) GERD (gastroesophageal reflux disease) Status: Chronic (10) Hypothyroidism Status: Chronic (11) Dementia Status: Chronic (12) Anxiety Status: Chronic (13) History of GI bleed Status: Resolved Plan/Intensity of Service Have independently interviewed and examined pt. Chart reviewed. Case discussed with ED physician and my CABLE RESPOOLER. Care plan developed with my supervision; agree with above. Found unresponsive at [facility]. Found to be hypoxic and hypotensive. Transported to [facility] ED for evaluation. BP low post 30mg/KG bolus-Levophed started. WBC with elevation. Lactate with significant elevation. CXR showing likely infiltrate. LOC very decreased. BiPAP started to help respiratory status. When seen by me in ICU, pt restless. BiPAP removed to try to help communicate better. All patient could say was "back off' to the nurse. Lungs: decreased, course bilaterally. Respiratory distress CV: tachy, regular AB: soft nt EXT: no edema Skin: no mottling. Assessment: as above Plan: Inpatient admission to CCU for treatment of septic shock due to pneumonia. Triple antibiotic coverage. IVF for hydration. Levophed to help BP. BiPAP for respiratory support. SCD for DVT prevention - concern about using Lovenox/Heparin in light of thrombocytopenia and anemia. Monitor lab. Andrea to monitor urine output. PICC line to help maintain IV access. Overall, prognosis worrisome. DVT Prophylaxis: SCD'S RENATA SAVAGE APRN October 07, 2016 09:55 KATELYN FAIRBANKS MD October 07, 2016 12:48
--- OUTSIDE RECORDS SUMMARY | 2016-10-07 10:09 | XMS REPORT | Continuity of Care Document ---
Author Author [facility] Organization [facility] Address Unknown Phone Unavailable Allergies Medications Problems Procedures Results Encounters ACCT No. Visit Date/Time Discharge Status Pt. Type Provider Facility Loc./Unit Complaint [id number] 03/31/2013 10:02:00 03/31/2013 23 :59:59 CLS Outpatient
--- NOTE | 2016-10-07 10:15 | NUR ---
ADMISSION NOTE PT. TAKEN TO CCU 3 PER CART ON MONITOR. BP IS IMPROVED. PT. TRANSFER WITH BIPAP ON. IV NS WITH KCL AND LEVAQUIN CONTINUES TO INFUSE. CARE TURNED OVER TO NU SURESH IN CCU.
--- NOTE | 2016-10-07 10:16 | NUR ---
ADMISSION Patient admitted to CCU bed 3 from ED at 1015. Settled in bed, side rails x 3, bed alarm activated and in low position as patient has a history of dementia and is restless upon transfer.
--- NOTE | 2016-10-07 11:00 | NUR ---
WEAN NOREPINEPHRINE Weaned Levophed to 7 mcg/minute. Vitals q 15 minutes. Patient strains arm against cuff when pressure is taking and so it is difficult to ascertain how accurate the pressure readings are. Will wean slowly.
[2016-10-07] MEDS: LORAZEPAM 2 MG/ML INJECTION IV PRN (11:37)
--- NOTE | 2016-10-07 11:40 | NUR ---
RESTLESSNESS Patient restless, pulling at Bipap, in danger of pulling IV lines and catheter out, and appears anxious. Ativan 0.5 mg IV given by slow IV push.
[2016-10-07] MEDS: ALBUTEROL/IPRATROPIUM INHAL. 2.5mg-0.5mg/3ml Neb. AEROSOL SCH ×5 (11:45→19:10)
[2016-10-07] MEDS ORDERED: ALBUTEROL/IPRATROPIUM INHAL. 2.5mg-0.5mg/3ml Neb. AEROSOL PRN (12:30)
--- NOTE | 2016-10-07 12:48 | NUR ---
VANCOMYCIN CONSULT: Dx: SEPSIS Current Renal Fx: SCr = 1.5mg/dl. Will give Vancomycin 1,000mg IV q24hrs. Will continue to monitor and adjust regimen to maintain therapeutic levels. Thank you.
--- NOTE | 2016-10-07 14:50 | NUR ---
UPDATE TO [facility] RN calls and requests information about Greta's status. Report given as to current diagnoses and basic treatments provided. Flu and pneumonia vaccine record dates obtained.
[2016-10-07] MEDS: MORPHINE SULFATE 2 MG SYRINGE IV PRN ×4 (14:57→23:54)
--- NOTE | 2016-10-07 15:04 | NUR ---
RESTLESSNESS, AIR HUNGER Continues to be very restless and unable to relax. Tachypnea at 26-32/minute, requiring Bipap at FIO@ 85%, 05/11 to keep saturations up. Desaturates within 2 or 3 minutes to <90% on high flow nasal cannula at 12 L. Morphine 2 mg IV given by slow IVP for air hunger after explanation provided to patient.
[2016-10-07] MEDS ORDERED: MORPHINE SULFATE 2 MG SYRINGE IV ONE (15:45)
--- NOTE | 2016-10-07 15:52 | NUR ---
PICC LINE CONSENT Alexandrea SURESH at bedside preparing for PICC line insertion. This RN and Alexandrea have spoken with the patient's daughter on the phone and explained the order for the PICC Line and the rationale for the doctor's order. The daughter/DPOA is familiar with a PICC line and has given verbal telephone consent. Indications include Norepinephine, Vancomycin and poor peripheral access, septic shock. A general update was also given to the daughter who lives in [place] at this time and questions were answered. She is going to try to visit tomorrow, if not tonight.
[2016-10-07 18:44] LABS: ANION GAP 15 MEQ/L (5-15); BUN/CREATININE RATIO 27 RATIO (6-26); CALCIUM 8.4 MG/DL (8.4-10.2); CHLORIDE 118 MEQ/L (98-107); CO2 - CARBON DIOXIDE 17 MEQ/L (22-30); GLOMERULAR FILTRATION RATE 52; GLUCOSE 130 MG/DL (65-110); POTASSIUM 4.3 MEQ/L (3.6-5); SODIUM 150 MEQ/L (134-144)
--- NOTE | 2016-10-07 19:30 | NUR ---
STATUS Norepinephrine weaned to 3 mcg/minute, will continue to assess tolerance. Patient continues to fight BP cuff, pressures have read high so weaned gradually throughout the day. Potassium has been replaced. IVF rate has been decreased, patient is on her fourth liter when considering what EMS infused. Upper airways are clearer than on admission, crackles are prominent particularly on the right. There has been no emesis and no complaints of nausea or pain. PICC line was inserted successfully with this RN assisting with holding the patient's arm due to restlessness. Fluids and pressor moved to the PICC site. Morphine has been used for air hunger and restlessness and seems to have helped more than the dose of Ativan this morning, which only seemed to "glaze her over" and perhaps increase her restlessness a bit. Critical labs, including elevated troponin late this shift have been called to Dr Fairbanks and this RN has reported continued restlessness on the Bipap. There has been inability to tolerate being off of it for more than a few minutes without desaturating into the mid 80's, however it is clear that the mask just really bothers her and exacerbates her dementia behaviors. Fall precautions have remained implemented. Family has just arrived to visit from [place].
[2016-10-07] MEDS: HALOPERIDOL 5 MG/ML INJECTION IV PRN ×2 (19:41→23:52)
[2016-10-07] MEDS: 1/2 NS 1,000 ML IV SCH (19:42)
[2016-10-07] MEDS: CEFEPIME 1 G in NORMAL SALINE 100 ML IV SCH (20:10)
[2016-10-07] MEDS ORDERED: VANCOMYCIN 1,000 MG in NORMAL SALINE 250 ML IV SCH (21:00)
--- NOTE | 2016-10-07 22:43 | NUR ---
Levophed has been weaned off as of 2019 this evening. MAP has been in the 100's. Pt remains agitated. Family is at bedside, questions answered.
[2016-10-08] VITALS (38 sets, daily range): BP systolic 111–170; BP diastolic 51–101; PULSE 99–123; RESP 14–32; TEMP 98.3–100.1; O2SAT 89–95
--- NOTE | 2016-10-08 00:02 | NUR ---
Pt continues to be agitated. Morphine and haldol given. BP is stable. Levophed has been off since 2046.
[2016-10-08] MEDS: MORPHINE SULFATE 2 MG SYRINGE IV PRN ×6 (02:01→21:23)
--- NOTE | 2016-10-08 02:07 | NUR ---
Pt is still somewhat agitated. Glycerin swabs used for her dry mouth. Pt desats quickly when mask is off for oral care.
--- NOTE | 2016-10-08 02:41 | NUR ---
Pt has not rested yet tonight. Is getting morphine every 2 hours and haldol every 4. Pt is a little less agitated but is not resting well.
[2016-10-08] MEDS: HALOPERIDOL 5 MG/ML INJECTION IV PRN ×4 (04:27→18:09)
[2016-10-08 05:12] LABS: HCT - HEMATOCRIT 41.9 % (36-46); HGB - HEMOGLOBIN 13.7 GM/DL (12-16); MEAN CORPUSCULAR HGB 31.4 UUG (26-34); MEAN CORPUSCULAR HGB CONC(MCHC 32.7 GM/DL (31-37); MEAN CORPUSCULAR VOLUME 96.1 UM3 (80-100); MEAN PLATELET VOLUME 12.1 UM3 (9.4-12.4); RED BLOOD COUNT 4.36 M/MM3 (4.00-5.20); WBC - WHITE BLOOD COUNT 6.6 T/MM3 (4.5-11.0)
[2016-10-08 05:27] LABS: ALBUMIN 2.7 G/DL (3.5-5.0); ALBUMIN/GLOBULIN RATIO 1.2 RATIO (1.1-2.2); ALKALINE PHOSPHATASE 46 U/L (38-126); ALT (SGPT) 50 U/L (9-52); ANION GAP 12 MEQ/L (5-15); AST (SGOT) 62 U/L (14-36); BUN/CREATININE RATIO 31 RATIO (6-26); CALCIUM 8.6 MG/DL (8.4-10.2); CHLORIDE 117 MEQ/L (98-107); CO2 - CARBON DIOXIDE 20 MEQ/L (22-30); CREATININE 0.9 MG/DL (0.7-1.2); GLOMERULAR FILTRATION RATE 59; GLUCOSE 96 MG/DL (65-110); POTASSIUM 4.6 MEQ/L (3.6-5); SODIUM 149 MEQ/L (134-144)
--- NOTE | 2016-10-08 05:40 | NUR ---
Pt has not had any rest during the night, although patient is less agitated.
[2016-10-08] MEDS ORDERED: VANCOMYCIN 1,000 MG in NORMAL SALINE 250 ML IV SCH (06:00)
[2016-10-08] MEDS: 1/2 NS 1,000 ML IV SCH ×2 (06:26→19:11)
[2016-10-08 06:56] LABS: BAND NEUTROPHILS # 2.9 T/MM3; LYMPHOCYTES # (MANUAL) 0.7 T/MM3 (1-4.8); METAMYELOCYTES # 0.3 T/MM3; MONOCYTES # (MANUAL) 0.1 T/MM3 (0-0.8); NEUTROPHILS #(MANUAL)-ABSOLUTE 2.6 T/MM3 (1.8-7.7); TOTAL CELLS COUNTED 100 %
[2016-10-08] MEDS: ALBUTEROL/IPRATROPIUM INHAL. 2.5mg-0.5mg/3ml Neb. AEROSOL SCH ×4 (07:07→19:20)
--- NOTE | 2016-10-08 07:30 | NUR ---
STATUS AM cares provided. Patient moans and picks at the air and lines.
[2016-10-08] MEDS: CEFEPIME 1 G in NORMAL SALINE 100 ML IV SCH ×3 (08:36→23:36)
[2016-10-08] MEDS: LORAZEPAM 2 MG/ML INJECTION IV PRN ×3 (09:24→21:22)
--- NOTE | 2016-10-08 09:30 | NUR ---
STATUS Patient continues restless, tachypneic and agitated. See EMar for meds given. Daughter continues at bedside.
--- NOTE | 2016-10-08 12:27 | PNPDOC ---
Subjective Date DATE: 10/08/16 TIME: 12:15 Subjective F/U: Septic shock, pneumonia, acute respiratory failure. Restless all night, calmed down more today with medications. Not verbally interactive at this time. Will move ext spontaneously. BP improved-weaned off Levophed. Needing BiPAP for respiratory support-FiO2 decreased to 70%. Daughter at bedside and case discussed with her. Objective Vital Signs Vital signs Vital Signs Date Time Temp Pulse Resp B/P Pulse Ox O2 Delivery O2 Flow Rate FiO2 10/08/16 12:00 98.7 104 29 132/60 91 Bi-pap 70 10/07/16 08:27 15.00 Height (Feet): 5 Height (Inches): 3.00 Weight (Kilograms): 70.400 General General Appearance: Overweight, Well Nourished, Well Developed, Moderate Distress, Looks Stated Age Eyes (Brief) Eyes: FOUND: EOMI, PERRL, NOT FOUND: scleral icterus ENMT (Brief) ENMT: FOUND: other (BiPAP mask present ) Neck (Brief) Neck: FOUND: midline, NOT FOUND: nuchal rigidity, spasm Respiratory (Brief) Respiratory: FOUND: equal bilaterally, rales (scattered ), NOT FOUND: clear all rendon (Coarse bilaterally, good air movement ) Cardiovascular (Brief) Cardiac: FOUND: regular rate, NOT FOUND: regular rhythm (Tachy ) Abdomen (Brief) Abdominal: FOUND: soft, NOT FOUND: BS normo active x4 (Decreased ), distended, tender (Brief) Female: FOUND: other (Andrea in place ) Extremities (Brief) Extremity : Side: Bilateral Extremity: leg Extremity Finding: FOUND: edema (+1 ), other (SCD ) Musculoskeletal (Brief) Musculoskeletal: NOT FOUND: deformity, spasm Integumentary (Brief) Integumentary: FOUND: dry, warm Neurologic (Brief) Neurological: FOUND: motor (Moves ext spontaeously ) Psychiatric (Brief) Psychiatric: FOUND: other (Restless ) Laboratory Laboratory Laboratory Tests 10/07/16 08:25 10/07/16 18:15 10/08/16 04:31 Laboratory Tests 10/07/16 08:25 10/08/16 04:31 Microbiology Microbiology Microbiology Date/Time Source Procedure Growth Status 10/07/16 08:21 Peripheral/Iv Start Blood Culture - Preliminary NO GROWTH AFTER 24 HOURS Resulted 10/07/16 08:13 Peripheral/Iv Start Blood Culture - Preliminary NO GROWTH AFTER 24 HOURS Resulted 10/07/16 10:04 Urine, Straight Cath Urine Culture - Preliminary CULTURE INITIATED - RESULTS PENDING Resulted Sepsis Diagnostic Criteria Sepsis Confirmed/Suspected Infection: Yes SIRS Criteria: Acute mental status chg, Pulse >= 90 beats/min Severe Sepsis SpO2 <90% or ventilated, SBP <90 or MAP <65, PLTC<100,000, Lactate >=2.0 mg/dL Septic Shock Septic Shock Criteria: Lactate >4 Assessment & Plan Problems: (1) Septic shock Status: Acute Assessment & Plan: Manifestations of septic shock include the following- 1. Respiratory failure with Hypoxia 2. Pneumonia 3. Venous lactate 8.7 4. Hypotension, 64/47- requiring Levophed drip to maintain MAP (2) HCAP (healthcare-associated pneumonia) Status: Acute (3) Respiratory failure with hypoxia Status: Acute Qualifiers: Chronicity: acute Qualified Codes: J96.01 - Acute respiratory failure with hypoxia (4) NSTEMI (non-ST elevated myocardial infarction) Status: Acute Assessment & Plan: Suspect Type II secondary to septic shock. (5) Thrombocytopenia Status: Acute Assessment & Plan: POA- Plt count- 68 (6) Hypokalemia Status: Resolved Assessment & Plan: POA- K 2.8 (7) Dehydration Status: Acute (8) Hypernatremia Status: Acute Assessment & Plan: POA (9) Hypertension Status: Chronic (10) GERD (gastroesophageal reflux disease) Status: Chronic (11) Hypothyroidism Status: Chronic (12) Dementia Status: Chronic (13) Anxiety Status: Chronic (14) History of GI bleed Status: Resolved Plan/Intensity of Service Continue cefepime, vancomycin, and levofloxacin for antimicrobial coverage. Continue 1/2NS at 100 cc/hr for volume support - Levophed weaned off. BiPAP to help respiratory support - wean FiO2 as able. Control pain and restlessness. Recheck CMP and CBC in am due to resolving septic shock. Continue CCU care and support-while condition stabilizing, still critically ill. Case discussed with CM, nursing, and pt's daughter. Time spent with pt care 35 minutes. DVT Prophylaxis: SCD'S Code Status Do Not Resuscitate Hospital Course Summary Disclaimer The hospital course summary below is not to be considered part of the above Progress Note. Hospital Course Summary 5/2 Admit patient as a inpatient under the care of Dr Fairbanks for septic shock, hypoxia and pneumonia Continue on Bi-pap for respiratory failure with hypoxia. Duoneb breathing tx QID. Given septic shock. Patient was given normal saline for fluid resuscitation as per sepsis protocol. Continue with half normal saline at 20 KCl for ongoing hydration. Continue on Levophed drip to maintain goal map greater than 65. Continue with antibiotic therapy including Levaquin, cefepime, vancomycin. Consult pharmacy for management of vancomycin dosing. Blood culture and urine culture pending. Recheck venous lactate at 1300 as per sepsis protocol. Will recheck basic metabolic profile at 1800 today to follow electrolyte abnormalities. Monitor patient on cardiac telemetry Will discuss anticoagulation further with Dr Fairbanks and firm assisted given thrombocytopenia, accompanied with elevated creatinine. There is concern for acute thrombus given elevation in d-dimer Will need to speak with patient's daughter, DPOA regarding plan of care, and severity of illness. Again, patient is a do not resuscitate and this orders written. At time of discharge medical care will return to primary care provider Dr Corral /3 Restless all night, calmed down more today with medications. Not verbally interactive at this time. Will move ext spontaneously. BP improved-weaned off Levophed. Needing BiPAP for respiratory support-FiO2 decreased to 70%. Daughter at bedside and case discussed with her. Continue cefepime, vancomycin, and levofloxacin for antimicrobial coverage. Continue 1/2NS at 100 cc/hr for volume support - Levophed weaned off. BiPAP to help respiratory support - wean FiO2 as able. Control pain and restlessness. Recheck CMP and CBC in am due to resolving septic shock. Continue CCU care and support-while condition stabilizing, still critically ill. KATELYN FAIRBANKS MD October 08, 2016 12:18
--- NOTE | 2016-10-08 14:12 | NUR ---
CM CM IN TO VISIT PT/DAUGHTER. CM EXPLAINED ROLE AND PROVIDED CONTACT INFORMATION. PT LIVES AT [facility] AND WILL RETURN THERE. DTR DENIES NEEDS AND IS AWARE TO CONTACT CM SHOULD NEEDS ARISE.
[2016-10-08] MEDS ORDERED: FUROSEMIDE 20 MG/2 ML INJECTION IV ONE (15:45)
[2016-10-08] MEDS ORDERED: FUROSEMIDE 40 MG/4 ML INJECTION IV ONE (16:15)
--- NOTE | 2016-10-08 16:30 | NUR ---
STATUS Patient appears to be more comfortable after meds given. Awake and restless w/ turns.
--- NOTE | 2016-10-08 18:30 | NUR ---
STATUS Patient repositioned to right side. Moans w/ activity and then seems to settle. Daughter at bedside. Diuresing well from lasix given earlier.
[2016-10-09] VITALS (39 sets, daily range): BP systolic 130–205; BP diastolic 59–102; PULSE 0–119; RESP 0–37; TEMP 97.6–100.2; O2SAT 0–97
[2016-10-09] MEDS: LORAZEPAM 2 MG/ML INJECTION IV PRN ×4 (02:25→15:28)
[2016-10-09] MEDS: HALOPERIDOL 5 MG/ML INJECTION IV PRN ×4 (02:25→15:28)
[2016-10-09] MEDS: MORPHINE SULFATE 2 MG SYRINGE IV PRN ×4 (02:26→15:29)
--- NOTE | 2016-10-09 02:30 | NUR ---
Pt repositioned and desats into the 80's. RT called. Bipap settings changed. Pt given Morphine and ativan for a SBP >190.
[2016-10-09] MEDS ORDERED: FUROSEMIDE 40 MG/4 ML INJECTION IV ONE ×2 (03:45→10:15)
--- NOTE | 2016-10-09 03:55 | NUR ---
Dr hsieh informed of patients sats and BP. Order received for 40mg lasix.
--- NOTE | 2016-10-09 04:55 | NUR ---
Pt son and are here from [place]. Pt is minimally responsive to them. Pt is diuresing well from the IV lasix. Son's questions are answered.
[2016-10-09 05:06] LABS: HCT - HEMATOCRIT 42.3 % (36-46); HGB - HEMOGLOBIN 13.7 GM/DL (12-16); MEAN CORPUSCULAR HGB 31.1 UUG (26-34); MEAN CORPUSCULAR HGB CONC(MCHC 32.4 GM/DL (31-37); MEAN CORPUSCULAR VOLUME 96.1 UM3 (80-100); MEAN PLATELET VOLUME 11.6 UM3 (9.4-12.4); WBC - WHITE BLOOD COUNT 11.9 T/MM3 (4.5-11.0)
[2016-10-09 05:18] LABS: ALBUMIN/GLOBULIN RATIO 1.1 RATIO (1.1-2.2); ALKALINE PHOSPHATASE 60 U/L (38-126); ALT (SGPT) 47 U/L (9-52); ANION GAP 12 MEQ/L (5-15); AST (SGOT) 66 U/L (14-36); BUN/CREATININE RATIO 29 RATIO (6-26); CALCIUM 9.2 MG/DL (8.4-10.2); CHLORIDE 113 MEQ/L (98-107); CO2 - CARBON DIOXIDE 23 MEQ/L (22-30); CREATININE 0.9 MG/DL (0.7-1.2); GLOMERULAR FILTRATION RATE 59; GLUCOSE 79 MG/DL (65-110); POTASSIUM 3.4 MEQ/L (3.6-5); SODIUM 148 MEQ/L (134-144); TOTAL PROTEIN 5.7 G/DL (6.3-8.2)
[2016-10-09] MEDS ORDERED: VANCOMYCIN IV SCH (06:00)
[2016-10-09] MEDS ORDERED: NORMAL SALINE IV SCH (06:00)
[2016-10-09] MEDS: 1/2 NS 1,000 ML IV SCH (06:44)
[2016-10-09 06:47] LABS: BAND NEUTROPHILS # 5.1 T/MM3; LYMPHOCYTES # (MANUAL) 0.8 T/MM3 (1-4.8); METAMYELOCYTES # 0.2 T/MM3; MONOCYTES # (MANUAL) 0.6 T/MM3 (0-0.8); NEUTROPHILS #(MANUAL)-ABSOLUTE 5.1 T/MM3 (1.8-7.7); TOTAL CELLS COUNTED 100 %
[2016-10-09] MEDS: ALBUTEROL/IPRATROPIUM INHAL. 2.5mg-0.5mg/3ml Neb. AEROSOL SCH ×2 (07:09→15:35)
[2016-10-09] MEDS: CEFEPIME 1 G in NORMAL SALINE 100 ML IV SCH (07:53)
[2016-10-09] MEDS ORDERED: LEVOFLOXACIN 750 mg IVPB 750 MG in D5W 150 ML IV SCH (09:00)
--- NOTE | 2016-10-09 10:20 | PNPDOC ---
Subjective Date DATE: 10/09/16 TIME: 10:10 Subjective F/U: Septic shock, pneumonia, acute respiratory failure. No meaningful improvement. Dependent on BiPAP-needing 100% FiO2 to maintain saturations. Did respond well to Lasix yesterday-increased urine output and blood pressure did not deteriorate. Received another 40mg IV Lasix overnight when O2 needs increasing. Restless-needing medications to help minimize agitation. WBC with increase. Renal status holding stable. Objective Vital Signs Vital signs Vital Signs Date Time Temp Pulse Resp B/P Pulse Ox O2 Delivery O2 Flow Rate FiO2 10/09/16 09:41 105 97 Spontaneous/Timed 100 10/09/16 08:26 37 10/09/16 08:01 100.2 144/101 10/07/16 08:27 15.00 Height (Feet): 5 Height (Inches): 3.00 Weight (Kilograms): 71.600 General General Appearance: Overweight, Well Nourished, Malnourished, Moderate Distress ENMT (Brief) ENMT: NOT FOUND: mucosa moist (Dry ) Neck (Brief) Neck: FOUND: midline, NOT FOUND: nuchal rigidity, spasm Respiratory (Brief) Respiratory: FOUND: other (Resp distress despite BiPAP. Labored breathing. ), NOT FOUND: clear all rendon (Coarse bilaterally ) Cardiovascular (Brief) Cardiac: FOUND: regular rhythm, NOT FOUND: pedal edema, regular rate (Tachy ) Abdomen (Brief) Abdominal: FOUND: soft, NOT FOUND: BS normo active x4 (Decreased ), tender (Brief) Female: FOUND: other (Andrea ) Extremities (Brief) Extremity : Side: Bilateral Extremity: forearm Extremity Finding: FOUND: edema (+2) Musculoskeletal (Brief) Musculoskeletal: NOT FOUND: deformity, spasm Neurologic (Brief) Neurological: FOUND: motor (Less spontanous movements ) Psychiatric (Brief) Psychiatric: FOUND: other (Obtunded ) Laboratory Laboratory Laboratory Tests 10/07/16 18:15 10/08/16 04:31 10/09/16 04:45 Laboratory Tests 10/08/16 04:31 10/09/16 04:45 Microbiology Microbiology Microbiology Date/Time Source Procedure Growth Status 10/07/16 08:21 Peripheral/Iv Start Blood Culture - Preliminary NO GROWTH AFTER 48 HOURS Resulted 10/07/16 08:13 Peripheral/Iv Start Blood Culture - Preliminary NO GROWTH AFTER 48 HOURS Resulted 10/07/16 10:04 Urine, Straight Cath Urine Culture - Final NO GROWTH AFTER 48 HOURS Complete Sepsis Diagnostic Criteria Sepsis Confirmed/Suspected Infection: Yes SIRS Criteria: Acute mental status chg, Pulse >= 90 beats/min Severe Sepsis SpO2 <90% or ventilated, SBP <90 or MAP <65, PLTC<100,000, Lactate >=2.0 mg/dL Septic Shock Septic Shock Criteria: Lactate >4 Assessment & Plan Problems: (1) Septic shock Status: Acute Assessment & Plan: Manifestations of septic shock include the following- 1. Respiratory failure with Hypoxia 2. Pneumonia 3. Venous lactate 8.7 4. Hypotension, 64/47- requiring Levophed drip to maintain MAP (2) HCAP (healthcare-associated pneumonia) Status: Acute (3) Respiratory failure with hypoxia Status: Acute Qualifiers: Chronicity: acute Qualified Codes: J96.01 - Acute respiratory failure with hypoxia (4) NSTEMI (non-ST elevated myocardial infarction) Status: Acute Assessment & Plan: Suspect Type II secondary to septic shock. (5) Thrombocytopenia Status: Acute Assessment & Plan: POA- Plt count- 68 (6) Hypokalemia Status: Resolved Assessment & Plan: POA- K 2.8 (7) Dehydration Status: Acute (8) Hypernatremia Status: Acute Assessment & Plan: POA (9) Hypertension Status: Chronic (10) GERD (gastroesophageal reflux disease) Status: Chronic (11) Hypothyroidism Status: Chronic (12) Dementia Status: Chronic (13) Anxiety Status: Chronic (14) History of GI bleed Status: Resolved Plan/Intensity of Service Discussed with daughter (DPOA) about lack of meaningful gains - she feels transition to comfort care would be reasonable. I concur. Pt's son arrived from [place] this morning at 0400 - will be back in today at noon: will discuss with him about comfort care transition. Lasix 40mg IV x1 now to help motivate fluid - hope will help with breathing. Stop IVF and give KCl bolus. Will continue with antibiotics and care support for now. Continue to work on pain control. Prognosis not favorable. Condition still critical. 183 Family did decide on comfort care with Hospice. [facility] evaluated pt and did agree she would be appropriate for inpatient hospice care. IVF and antibiotics discontinued. MS and lorazepam doses adjusted to help pain and air hunger. Atropine drops orders for secretions. BiPAP removed. Suspect terminal event will be soon. Emotional support given to family. 1848 Asystole and secession of respirations at 1844. Did have PEA - no apical heart or lung tones. Pt pronounced at 1844 - cause of complications of Sepsis, Pneumonia, respiratory failure. Cause of natural. Code not initiated as pt DNR. DNR order written at admit. attended by pt's son and daughter, with nursing staff and [facility] nurse. Tobacco not thought to play a role in pt's . Will release body. Case discussed with nursing, CM, and [facility] nurse, and pt's daughter. Time spent with pt care 35 minutes. DVT Prophylaxis: SCD'S Code Status Do Not Resuscitate Hospital Course Summary Disclaimer The hospital course summary below is not to be considered part of the above Progress Note. Hospital Course Summary 10/07 Admit patient as a inpatient under the care of Dr Fairbanks for septic shock, hypoxia and pneumonia Continue on Bi-pap for respiratory failure with hypoxia. Duoneb breathing tx QID. Given septic shock. Patient was given normal saline for fluid resuscitation as per sepsis protocol. Continue with half normal saline at 20 KCl for ongoing hydration. Continue on Levophed drip to maintain goal map greater than 65. Continue with antibiotic therapy including Levaquin, cefepime, vancomycin. Consult pharmacy for management of vancomycin dosing. Blood culture and urine culture pending. Recheck venous lactate at 1300 as per sepsis protocol. Will recheck basic metabolic profile at 1800 today to follow electrolyte abnormalities. Monitor patient on cardiac telemetry Will discuss anticoagulation further with Dr Fairbanks and firm assisted given thrombocytopenia, accompanied with elevated creatinine. There is concern for acute thrombus given elevation in d-dimer Will need to speak with patient's daughter, DPOA regarding plan of care, and severity of illness. Again, patient is a do not resuscitate and this orders written. At time of discharge medical care will return to primary care provider Dr Corral 10/08 Restless all night, calmed down more today with medications. Not verbally interactive at this time. Will move ext spontaneously. BP improved-weaned off Levophed. Needing BiPAP for respiratory support-FiO2 decreased to 70%. Daughter at bedside and case discussed with her. Continue cefepime, vancomycin, and levofloxacin for antimicrobial coverage. Continue 1/2NS at 100 cc/hr for volume support - Levophed weaned off. BiPAP to help respiratory support - wean FiO2 as able. Control pain and restlessness. Recheck CMP and CBC in am due to resolving septic shock. Continue CCU care and support-while condition stabilizing, still critically ill. 10/09 No meaningful improvement. Dependent on BiPAP-needing 100% FiO2 to maintain saturations. Did respond well to Lasix yesterday-increased urine output and blood pressure did not deteriorate. Received another 40mg IV Lasix overnight when O2 needs increasing. Restless-needing medications to help minimize agitation. WBC with increase. Discussed with daughter (DPOA) about lack of meaningful gains - she feels transition to comfort care would be reasonable. I concur. Pt's son arrived from [place] this morning at 0400 - will be back in today at noon: will discuss with him about comfort care transition. Lasix 40mg IV x1 now to help motivate fluid - hope will help with breathing. Stop IVF and give KCl bolus. Will continue with antibiotics and care support for now. Continue to work on pain control. Prognosis not favorable. Condition still critical. 1835 Family did decide on comfort care with Hospice. [facility] hospice evaluated pt and did agree she would be appropriate for inpatient hospice care. IVF and antibiotics discontinued. MS and lorazepam doses adjusted to help pain and air hunger. Atropine drops orders for secretions. BiPAP removed. Suspect terminal event will be soon. Emotional support given to family. 1848 Asystole and secession of respirations at 1844. Did have PEA - no apical heart or lung tones. Pt pronounced at 1844 - cause of complications of Sepsis, Pneumonia, respiratory failure. Cause of natural. Code not initiated as pt DNR. DNR order written at admit. attended by pt's son and daughter, with nursing staff and [facility] nurse. Tobacco not thought to play a role in pt's . Will release body. KATELYN FAIRBANKS MD October 09, 2016 10:13
[2016-10-09] MEDS: POTASSIUM CHLORIDE 10 MEQ in WATER FOR INJECTION 100 ML IV SCH ×4 (10:35→13:59)
--- NOTE | 2016-10-09 16:35 | NUR ---
ANURAG CM IN TO VISIT WITH PT. SHE IS UNABLE TO PARTICIPATE SECONDARY TO CLINICAL CONDITION. HER SON, DAUGHTER AND DAUGHTER IN LAW ARE PRESENT. THEY WOULD LIKE HOSPICE CONSULT. THEY OPT TO USE [facility]. CM TELEPHONED BA WITH [facility]. THEY WILL HAVE A NURSE OUT WITHIN THE HOUR.
--- NOTE | 2016-10-09 17:36 | NUR ---
HOSPICE DEMETRICE TREVIÑO, WITH [facility], AT BEDSIDE VISITING WITH FAMILY.
[2016-10-09] MEDS ORDERED: EYE PO/SL PRN (18:15)
[2016-10-09] MEDS ORDERED: LORAZEPAM 2 MG/ML INJECTION IV PRN (18:15)
[2016-10-09] MEDS ORDERED: MORPHINE SULFATE 10 MG SYRINGE IV PRN (18:15)
[2016-10-09] MEDS ORDERED: ATROPINE 1% PO/SL PRN (18:15)
--- NOTE | 2016-10-09 18:50 | NUR ---
STATUS PT IS , DA/DPOA, SON AND DIL AT BEDSIDE. KAMILA FRANCO RN, WITH [facility] AT BEDSIDE. Bi-PAP REMOVED AT 1825. PT OBSERVED TO BE COMFORTABLE THROUGHOUT REMOVAL OF Bi-PAP UNTIL . RN PROVIDED PT CHILDREN WITH SCISSORS AND ZIP LOC BAG TO TAKE LOCKS OF HAIR. DEMETRICE FRANCO, COORDINATED HOME. FAMILY IS DISPERSING.
--- NOTE | 2016-10-09 19:11 | NUR ---
[facility] notified of pt's passing, per family request.
--- NOTE | 2016-10-09 19:30 | NUR ---
Cares RN removed IV, PICC line, and chang at this time per instruction from home and technician. Family outside of room. Addendum: 10/09/16 at 2017 by ALEJANDRO LAM RN maintenance assistantArpita, with family.
--- NOTE | 2016-10-09 19:40 | NUR ---
Personal Alarm Pt has personal alarm to left ankle. RN contacted nurse, Mere, at [facility] - instructed to cut off alarm and return to [facility]. Daughter, Aneta, offered to take alarm back to retirement as she is going there in the a.m. Mere, DEMETRICE [facility], notified of this. Appreciative.
--- NOTE | 2016-10-09 20:00 | NUR ---
Home [facility] left with body at this time.
--- NOTE | 2016-10-09 20:10 | NUR ---
Family Departed Pt's family departed at this time together. Along with farmhand, Arpita Barahona, and family dialysis rn.
--- NOTE | 2016-10-11 10:39 | DESF ---
ADMISSION DIAGNOSIS Septic shock. DISCHARGE DIAGNOSIS secondary to complications of sepsis. ASSOCIATED CONDITIONS AND COMPLICATIONS Healthcare associated pneumonia. Acute respiratory failure requiring BiPAP. NSTEMI--type 2 secondary to septic shock. Thrombocytopenia. Hypokalemia (present on admission). Hypernatremia (present on admission). Dehydration. Hypertension. GERD. Hypothyroidism. Dementia. Anxiety. History of GI bleed. PROCEDURES None. CONSULTS [facility]. CLINICAL RESUME Mrs. Sanford is an 86-year-old female who presents to [facility] from [facility] via EMS. Patient was found unresponsive, hypoxic, and hypotensive at [facility] this morning. She was found to have dried blood in her mouth and around her lips. Initial blood pressure was 60 by palp and room air saturations were in the 70s. She was placed on oxygen and started on IV fluids. In the emergency room, she was evaluated. With 15 liters of oxygen, she was only 89%. Blood pressure was 64/47. Heart rate was 98. Venous lactate was quite elevated at 8.7. Chest x-ray revealed bilateral patchy lobe airspace disease, likely representing pneumonia. Secondary to extreme hypotension, patient was started on Levaquin drip and IV fluids. She was given appropriate IV bolus. Hospitalist Service was notified and patient was subsequently placed in the inpatient admission status at [facility] CCU for supportive care. For complete details of the H&P refer to that document. LABORATORY White blood count is 4.2, with 74.9% neutrophils. Hemoglobin is 12.9 with hematocrit 39.3, MCV 98.7, and platelets 68,000. Serum sodium is 149, potassium 2.8, chloride 115, CO2 17, BUN 24, with creatinine 1.5, GFR 33, and blood glucose 148. Magnesium is 1.8. Transaminases are unremarkable. Troponin I is 0.027. Pro-BNP is 1220. Lactate is 8.7 with procalcitonin 6.69. INR is 1.11, with PTT 23.2, and D-dimer 4268. UA reveals 1+ protein, 2+ blood, with 30 to 50 WBC/HPF, and 3+ bacteria. ABG reveals pH 7.420, with pCO2 36, pO2 57, and saturations 98% while on BiPAP. HOSPITAL COURSE Patient was placed in inpatient admission status at [facility] under the care of Dr. Fairbanks. She was placed in CCU secondary to septic shock and need for aggressive care. IV fluid bolus had been given and continued with half-normal saline with 20 mEq potassium to help with hydration and volume support. Levophed drip was initiated to maintain mean arterial pressure greater than 65. She was started on triple-antibiotic therapy consisting of cefepime, vancomycin, and Levaquin--being dosed by pharmacy protocol. Cardiac telemetry was monitored. SCDs were initiated for DVT prophylaxis. We did give consideration for Lovenox/heparin secondary to elevated D-dimer, however, I elected against this due to her thrombocytopenia. She was made DNR at time of presentation as per her request. Hospital course was one of no significant improvement. By hospital day #1, blood pressure had improved to the point where she was able to be weaned off of Levophed. We continued with IV fluids and continued BiPAP for support. Lab was monitored and white count did gradually increased. By the 10/09/2016, she was really not making meaningful improvement. She was still dependent on BiPAP with needing 100% FiO2 to maintain saturations. Any time she would come off of BiPAP, she would desaturate quite promptly. Her level of responsiveness was decreasing. As blood pressure was improving, we did provide Lasix to try to help minimize any volume overload. While we did see increased urine output, we really did not make much improvement of her respiratory status. Her daughter did not feel she would wish continued treatments. On 10/09/2016 son was able to come in from [place], [place]. Case was discussed with him. We discussed her presenting signs and symptoms and hospital course. Given her lack of any meaningful improvement, both the patient's daughter and son did feel transition towards comfort care would be prudent. [facility] was consulted. Hospice nurse did come and evaluate patient and did feel it was quite prudent for inpatient hospice care. We did make medication adjustments of morphine and Ativan as per hospice recommendations. Additionally we did discontinue IV antibiotics and IV fluids as well as any modalities which would not be conducive to maintaining her comfort. Around 1835 hours we did remove BiPAP. Daughter and son were at bedside. Her oxygenation gradually declined and ultimately the patient developed asystole at 1844 hours. Following asystole she did have episode of PEA, but there were no apical heart tones or palpable pulse. Code was not initiated as she was DNR. DNR order was written at time of presentation. Cause of was natural. was secondary to complications of sepsis due to pneumonia. Compounding factors include her dementia and advanced age. Emotional support was provided to family members. Body was released to mortuary. [facility]
== END 2016-10-09 20:00 | disposition expired | DRG 871 ==
LOC: ED 07:54 → EDHOLD 09:59 → CCU 10:10
PROVIDERS: ADMIT Hospitalist; ATTEND Hospitalist
PROC: 5A09457 Assistance with Respiratory Ventilation, 24-96 Consecutive Hours, Continuous Positive Airway Pressure (ICD-10-PCS; principal; 2016-10-07)
DX: A41.9 Sepsis, unspecified organism (principal); J18.9 Pneumonia, unspecified organism; R65.21 Severe sepsis with septic shock; J96.01 Acute respiratory failure with hypoxia; I21.4 Non-ST elevation (NSTEMI) myocardial infarction; E87.0 Hyperosmolality and hypernatremia; D69.6 Thrombocytopenia, unspecified; E87.6 Hypokalemia; E86.0 Dehydration; I10 Essential (primary) hypertension; Z66 Do not resuscitate; Z51.5 Encounter for palliative care; E03.9 Hypothyroidism, unspecified; F03.90 Unspecified dementia, unspecified severity, without behavioral disturbance, psychotic disturbance, mood disturbance, and anxiety; F41.9 Anxiety disorder, unspecified; K21.9 Gastro-esophageal reflux disease without esophagitis
CPT/HCPCS: 36415; 36600; 51702; 80048; 80053; 81001; 82803; 83605; 83735; 83880; 84145; 84484; 85025; 85379; 85610; 85730; 86850; 86900; 86901; 87040; 87086; 93005; 94002; 94003; 94640; 96365; 96367; 96368